=== PATIENT | male | born 1955 | race American Indian/Alaskan Native ===

== ENCOUNTER 2018-02-19 18:54 | Inpatient (IN) | payer MEDICAID, OTHER ==
--- NOTE | 2018-02-19 19:03 | Emergency Department Report ---
HPI - General Time Seen by Provider: 02/19/18 18:59 - HPI HPI: 63-year-old -Monegas[place] male presents to the emergency department via EMS from home with complaint of a syncopal episode and then some strokelike symptoms. The patient does have a history of previous CVA with some residual left-sided weakness. He went for a walk about 1 hour prior to arrival. When he came home he had a witnessed syncopal episode and then came to with some slurred speech and worsening of the left-sided weakness. He then laid down to rest and says that most of his symptoms have since resolved and he is left with the residual left-sided weakness. He denies any headache, vision change. He does appear to have some new mild left sided numbness or decreased sensation. ED Review of Systems ROS: Stated complaint: POSSIBLE STROKE Other details as noted in HPI Comment: All other systems reviewed and negative Constitutional: denies: chills, fever Eyes: denies: eye pain, vision change ENT: denies: ear pain, throat pain Respiratory: denies: cough, shortness of breath Cardiovascular: denies: chest pain, palpitations Gastrointestinal: denies: abdominal pain, vomiting Genitourinary: denies: dysuria, discharge Musculoskeletal: denies: back pain, arthralgia Neurological: headache, weakness, numbness Physical Exam - Physical Exam Physical Exam: GENERAL: The patient is well-developed well-nourished. HEENT: Normocephalic. Atraumatic. Patient has moist mucous membranes. EYES: Extraocular motions are intact. Pupils are equal and reactive to light bilaterally. NECK: Supple. Trachea is midline. CHEST/LUNGS: Clear to auscultation. There is no respiratory distress noted. HEART/CARDIOVASCULAR: Regular. There is no tachycardia. There is no obvious murmur. ABDOMEN: Abdomen is soft, nontender. Patient has normal bowel sounds. There is no abdominal distention. SKIN: Skin is warm and dry. NEURO: The patient is awake, alert, and oriented. The patient is cooperative. There is some subjective decreased sensation to the left side of the face and the left arm when compared to the right side. No facial asymmetry. The patient has normal speech. Mild left upper and lower extremity pronator drift. MUSCULOSKELETAL: There is no tenderness or deformity. There is no evidence of acute injury. ED Course - Consultations Consultation #1: 02/19/18 19:42 I have spoken with the telemedicine neurologist, Dr. Herrera, who is going to evaluate the patient via penciller and call back with his recommendations. 02/19/18 20:00 The telemedicine neurologist saw the patient and feels that he is basically back at his baseline neurological status. He does not feel that the patient needs TPA as he has shown improvement. He does not feel the patient requires CT angiography of the head and neck but does suggest admission for TIA workup. ED Medical Decision Making - Lab Data Result diagrams: 02/19/18 19:25 02/19/18 19:25 - EKG Data -: EKG Interpreted by Dc EKG shows normal: sinus rhythm (PVCs), axis, intervals, QRS complexes, ST-T waves Rate: normal - EKG Data When compared to previous EKG there are: previous EKG unavailable Interpretation: normal EKG - Radiology Data Radiology results: report reviewed EXAM: CT HEAD/BRAIN WO CON HISTORY: neuro deficits lt; 6hrs or sx present upon awakening TECHNIQUE: CT head without contrast PRIORS: None. FINDINGS: No acute intra-axial or extra-axial hemorrhage is identified. There is no evidence of midline shift or mass effect. The ventricles and sulci are within normal limits. Hardin- white matter differentiation is intact. No acute parenchymal abnormalities seen. There are patchy and confluent hypodensities within the right frontal and temporal white matter Bony calvarium is grossly intact. Visualized portions of the mastoids and paranasal sinuses are unremarkable. IMPRESSION: Chronic ischemic changes No acute parenchymal abnormality seen. Transcribed By: EMMANUEL Dictated By: FRANNY GORE MD Electronically Authenticated By: FRANNY GORE MD Signed Date/Time: 02/19/181916 PROCEDURE: CT ANGIO CHEST TECHNIQUE: Computerized tomographic angiography of the chest was performed during the IV injection of iodinated nonionic contrast including image processing. The image data was postprocessed using 2- dimensional multiplanar reformatted (MPR) and 3-dimensional (MIP and/or volume rendered) techniques. HISTORY: Syncope, elevated dimer. Evaluate pulmonary embolus COMPARISON: No prior studies are available for comparison. FINDINGS: Pulmonary outflow tract, right and left main pulmonary arteries and their proximal branches: Clear, no filling defects seen to suggest pulmonary embolus. Pericardium: No evidence of pericardial effusion. Thoracic aorta: No evidence of aneurysmal dilatation or dissection. Coronary arteries: Are partially calcified indicating atherosclerotic disease. Mediastinum and hilar regions: Nonspecific subcentimeter lymph nodes are visua lized. No pathologically enlarged lymph nodes or masses are identified. Lung Velez: Minimal dependent atelectasis. Lungs otherwise are clear. Upper abdomen: 2 calculi are partially visualized in the upper 3rd of the left kidney each measuring approximately 7 millimeters. Renal cortex left kidney appears thin, suspect atrophy of the left kidney. The entire left kidney is not visualized. I suspect there peripelvic cyst visualized in the left kidney. Hydronephrosis not entirely excluded. Other: No acute bony abnormalities are identified. IMPRESSION: No evidence of pulmonary embolus. Small amount of dependent atelectasis visualized. Atherosclerosis coronary arteries. Left kidney appears atrophied, although only partially visualized. Two calculi are partially visualized in the upper 3rd of the left kidney. I suspect peripelvic cysts in the upper 3rd of the left kidney although I cannot exclude hydronephrosis on the left. Transcribed By: LALO Dictated By: JEANINE CHIN MD Electronically Authenticated By: JEANINE CHIN MD Signed Date/Time: 02/19/182123 - Medical Decision Making Patient presents after having a syncopal episode and waking up with some aphasia or dysarthria. However that has resolved prior to arrival. He has some subjective decreased sensation to the left side of the face and left arm. He does have some left upper and lower extremity mild drift but that is a baseline for him now after his previous CVA. This would mean that his NIH stroke scale, not including his residual deficits, otherwise be a 1. CT head without contrast did not show any acute ischemia, bleed, shift, mass or any other acute process. Patient was seen by the telemedicine neurologist who agrees that this sound more like a TIA and does not require TPA or CT angiography head/neck. Since the patient had some unexplained syncopal episode, I ordered a d-dimer which came back slightly elevated and equivocal. For this reason a CT angiography of the chest was done that did not show any pulmonary embolism, dissection or any other acute process. Patient's lab mostly unremarkable. He does have a slightly elevated and equivocal troponin level that will be repeated. The patient will be admitted to the hospital for further evaluation and treatment and was accepted for admission by the hospitalist, Dr. Parikh. - Differential Diagnosis CVA, TIA, PE, Dysrythmia, NV Critical Care Time: No Critical care attestation.: If time is entered above; I have spent that time in minutes in the direct care of this critically ill patient, excluding procedure time. ED Disposition Clinical Impression: TIA (transient ischemic attack) Hypertension Qualifiers: Hypertension type: essential hypertension Qualified Code(s): I10 - Essential (primary) hypertension Disposition: OP ADMIT IP TO THIS HOSP Is pt being admited?: Yes Condition: Fair Instructions: Hypertension (ED) Referrals: PRIMARY CARE, [Primary Care Provider] - 3-5 Days Time of Disposition: 22:40 - Assessment Assessment Interval: Baseline - Level of Consciousness 1a. Level of Consciousness: alert/keenly responsive - LOC Questions 1b. LOC Questions: answers both correctly - LOC Command 1c. LOC Commands: performs tasks correctly - Best Gaze 2. Best Gaze: normal - Visual 3. Visual: no visual loss - Facial Palsy 4. Facial Palsy: normal symmetrical movement - Motor Arm 5b. Motor Arm Right: no drift 5a. Motor Arm Left: drift - Motor Leg 6b. Motor Leg Right: no drift 6a. Motor Leg Left: drift - Limb Ataxia 7. Limb Ataxia: absent - Sensory 8. Sensory: mild/moderate sensory loss - Best Language 9. Best Language: no aphasia - Dysarthria 10. Dysarthria: normal - Extinction and Inattention 11. Extinction/Inattention: no abnormality - Scoring Total Score: 3 Stroke Severity: Minor Stroke
--- NOTE | 2018-02-19 19:17 | Cat Scan Report ---
FINAL REPORT EXAM: CT HEAD/BRAIN WO CON HISTORY: neuro deficits <6hrs or sx present upon awakening TECHNIQUE: CT head without contrast PRIORS: None. FINDINGS: No acute intra-axial or extra-axial hemorrhage is identified. There is no evidence of midline shift or mass effect. The ventricles and sulci are within normal limits. Hardin-white matter differentiation is intact. No acute parenchymal abnormalities seen. There are patchy and confluent hypodensities wit hin the right frontal and temporal white matter Bony calvarium is grossly intact. Visualized portions of the mastoids and paranasal sinuses are unre markable. IMPRESSION: Chronic ischemic changes No acute parenchymal abnormality seen.
[2018-02-19 19:33] LABS: Basophils # (Auto) 0.1 K/mm3 (0.0-0.1); Basophils % (Auto) 0.7 % (0.0-1.8); Eosinophils # (Auto) 0.3 K/mm3 (0.0-0.4); Eosinophils % (Auto) 3.4 % (0.0-4.3); Hematocrit 41.8 % (35.5-45.6); Hemoglobin 14.7 gm/dl (11.8-15.2); Lymphocytes % (Auto) 26.9 % (13.4-35.0); Mean Corpuscular HGB Conc 35 % (32-34); Mean Corpuscular Volume 90 fl (84-94); Monocytes # (Auto) 0.8 K/mm3 (0.0-0.8); Monocytes % (Auto) 10.1 % (0.0-7.3); Platelet Count 222 K/mm3 (140-440); Red Blood Count 4.65 M/mm3 (3.65-5.03); Red Cell Distribution Width 13.5 % (13.2-15.2)
[2018-02-19 19:48] LABS: BUN/Creatinine Ratio 13; Blood Urea Nitrogen 16 mg/dL (9-20); Calcium 8.8 mg/dL (8.4-10.2); Hemolysis Index 186
[2018-02-19 19:53] LABS: Partial Thromboplastin Time 30.5 Sec. (24.2-36.6)
[2018-02-19 19:54] LABS: Thrombin Time 16.5 Sec. (15.1-19.6)
--- NOTE | 2018-02-19 21:24 | Cat Scan Report ---
FINAL REPORT PROCEDURE: CT ANGIO CHEST TECHNIQUE: Computerized tomographic angiography of the chest was performed during the IV injection o f iodinated nonionic contrast including image processing. The image data was postprocessed using 2-di mensional multiplanar reformatted (MPR) and 3-dimensional (MIP and/or volume rendered) techniques. HISTORY: Syncope, elevated dimer. Evaluate pulmonary embolus COMPARISON: No prior studies are available for comparison. FINDINGS: Pulmonary outflow tract, right and left main pulmonary arteries and their proximal branches: Clear, n o filling defects seen to suggest pulmonary embolus. Pericardium: No evidence of pericardial effusion. Thoracic aorta: No evidence of aneurysmal dilatation or dissection. Coronary arteries: Are partially calcified indicating atherosclerotic disease. Mediastinum and hilar regions: Nonspecific subcentimeter lymph nodes are visualized. No pathologicall y enlarged lymph nodes or masses are identified. Lung Velez: Minimal dependent atelectasis. Lungs otherwise are clear. Upper abdomen: 2 calculi are partially visualized in the upper 3rd of the left kidney each measuring approximately 7 millimeters. Renal cortex left kidney appears thin, suspect atrophy of the left kidne y. The entire left kidney is not visualized. I suspect there peripelvic cyst visualized in the left k idney. Hydronephrosis not entirely excluded. Other: No acute bony abnormalities are identified. IMPRESSION: No evidence of pulmonary embolus. Small amount of dependent atelectasis visualized. Atherosclerosis coronary arteries. Left kidney appears atrophied, although only partially visualized. Two calculi are partially visualiz ed in the upper 3rd of the left kidney. I suspect peripelvic cysts in the upper 3rd of the left kidne y although I cannot exclude hydronephrosis on the left.
[2018-02-20 01:43] LABS: Chol/HDL Ratio 3.2 %
--- NOTE | 2018-02-20 08:17 | History and Physical Report ---
CHIEF COMPLAINT: Syncopal attack. OTHER COMPLAINT: Includes left-sided weakness. HISTORY OF PRESENT ILLNESS: The patient is a 63-year-old male who had a syncopal attack after he went for a walk and also developed slurred speech with increasing weakness on the left side of the body. The patient had cerebrovascular accident in the past with left-sided weakness. Thereafter, the patient had a syncopal episode with weakness on the left side increased. The patient after passing out laid down to rest and then noticed that the symptoms started resolving. He still had some residual left-sided weakness and he decided to call 911 and was brought to the Emergency Room. There is no history of visual examine. No history of chest pain or shortness of breath, however, there is history of left-sided numbness. PAST MEDICAL HISTORY: Pertinent for CVA with left-sided weakness. Also, the patient has past medical history of high blood pressure. FAMILY HISTORY: Noncontributory. SOCIAL HISTORY: The patient lives with family. Does not smoke cigarettes. Does not drink alcohol and does not use illicit drugs. MEDICATIONS: The patient's home medications are not known at this time. ALLERGIES: There are no known drug allergies. REVIEW OF SYSTEMS: CONSTITUTIONAL: There is no fever, no chills, no diaphoresis. HEENT: There is no headache or sore throat. CARDIOVASCULAR SYSTEM: No chest pain or orthopnea. RESPIRATORY SYSTEM: There is no shortness of breath or cough. GASTROINTESTINAL SYSTEM: There is no nausea, no vomiting, no abdominal pain, diarrhea or constipation. NEUROLOGICAL SYSTEM: Syncopal attack noted, increasing left-sided weakness noted. There is no history of change in mental status. MUSCULOSKELETAL SYSTEM: There is no joint pain or swelling. DERMATOLOGICAL SYSTEM: There is no skin rash or itching. GENITOURINARY SYSTEM: There is dysuria, hematuria, or flank pain. Rest of system review is normal. PHYSICAL EXAMINATION: GENERAL: At the time of exam, the patient was found to be alert, oriented x 3, and not in acute distress. VITAL SIGNS: Shows normal temperature with pulse of 65, respirations 12, blood pressure 148/96 with normal O2 sat. HEENT: Shows pupils to be equal, round, reactive to light and accommodation. Extraocular muscles intact. NECK: Supple with no JVD or carotid bruits. CARDIOVASCULAR SYSTEM: Showed normal first and second heart sounds with no gallops or murmurs. RESPIRATORY SYSTEM: Shows good air entry on both sides of the lungs with no abnormal breath sounds. GASTROINTESTINAL SYSTEM: Show abdomen to be full, soft, nontender with no organomegaly or rigidity. NEUROLOGIC: Shows weakness on the left side of the body compared to the right with muscle strength of grade 4/6 on the left compared to grade 6/6 on the right. There is no loss of sensory function. MUSCULOSKELETAL SYSTEM: Show no joint swelling or tenderness. DERMATOLOGICAL SYSTEM: Show no skin rash. GENITOURINARY SYSTEM: Showing no costovertebral angle tenderness. PERTINENT LABORATORY DATA: The patient had CBC done, which came back unremarkable and the patient's coagulation studies show a high D-dimer of 259. The patient's chemistry showed low sodium level of 135 and the patient's initial troponin level came back normal with a value of 0.025. IMAGING STUDIES: The patient has CT of the head without contrast done that shows chronic ischemic changes with no acute parenchymal abnormalities. The patient also has CT angiogram of the chest done, ____ elevated. D-dimer shows no evidence of pulmonary embolism. There is finding of small amount of dependent atelectasis. Also, there is finding of atherosclerosis of the coronary arteries and left kidney appears atrophy. There is also a finding of 2 calculi in the upper side of the left kidney. DIAGNOSES: Transient ischemic attack. PLAN OF ACTION: 1. The patient will be admitted to telemetry. 2. The patient will have MRI of the brain without contrast done this morning. 3. The patient will have 2D echo and bilateral carotid Doppler done this morning. 4. The patient will have Neurology consult with Dr. Faustino Guillermo. 5. The patient will have physical therapy and speech therapy consults to evaluate and treat. 6. The patient will remain n.p.o. until swallow test is passed. 7. The patient will be on aspirin 325 mg by mouth daily and will stay on oxygen by nasal cannula 2 liters per minute. 8. The patient will be on neuro check every 4 hours. JOB# [id number] OCN/NTS
[2018-02-20] MEDS: ASPIRIN PO SCH (12:15)
--- NOTE | 2018-02-20 12:43 | Magnetic Resonance Report ---
MRI OF THE BRAIN WITHOUT CONTRAST: HISTORY: TIA PROCEDURE: Multiplanar, multisequence MR imaging of the brain without IV contrast was performed. FINDINGS: Compared to the CT dated 02/19/18. MRI demonstrates 3 areas of diffusion restriction. A 3.0 x 1.9 cm area of diffusion restriction is identified in the anterior right frontal cortex. Just posterior to this, a 0.8 cm focus of diffusion restriction is identified in the superior right frontal cortex. A 1.9 x 1.1 cm area of cortical diffusion restriction is identified in the right parietal lobe. This appears to involve the right precentral gyrus. Advanced volume loss and chronic white matter changes are noted. Small chronic cortical infarcts or identified throughout the watershed regions of the right frontal and parietal lobes. There is no evidence for hemorrhage, mass or extra-axial fluid collection. The midline structures are central. The basal cisterns are patent. Normal ventricular size. The orbital cavities and sella turcica demonstrate no abnormality. The visualized paranasal sinuses and mastoid air cells are adequately aerated. IMPRESSION: At least 3 focal areas of subacute ischemia are identified in the right frontal and right parietal lobes as described above. There also appears to be multiple small chronic cortical infarcts in the watershed regions of the right cerebral hemisphere. Volume loss. Chronic white matter changes.
--- NOTE | 2018-02-20 13:10 | Progress Note ---
Assessment and Plan Assessment and plan: Acute CVA. MRI reveals 3 focal areas of soap askew ischemia identified in the right frontal and right parietal lobes. There also appears to be multiple small chronic cortical infarcts in the watershed regions of the right cerebral hemisphere. Echocardiogram reveals EF of 15-20%. Left ventricular systolic function is severely decreased with chamber size severely dilated. Mild concentric left ventricular hypertrophy. Negative contrast bubble study. Carotid Doppler pending. Neurology consultation pending. Cardiomyopathy. Patient with EF of 15-20%. Consult cardiology for further evaluation. Syncope. Etiology may be secondary to #1. Follow-up carotid Dopplers. History Interval history: 63-year-old -Mexican male presents to the emergency department via EMS from home with complaint of a syncopal episode and then some strokelike sym ptoms. The patient does have a history of previous CVA with some residual left- sided weakness. He went for a walk about 1 hour prior to arrival. When he came home he had a witnessed syncopal episode and then after regaining consciousness he was noticed to have some slurred speech and worsening of the left-sided weakness. He then laid down to rest and says that most of his symptoms have since resolved. However, he is left with the residual left-sided weakness. He denies any headache, vision change. He does appear to have some new mild left sided numbness or decreased sensation. Hospitalist Physical - Constitutional Vitals: Temp Pulse Resp BP Pulse Ox 98.6 F 62 18 131/81 99 02/20/18 07:41 02/20/18 10:00 02/20/18 10:00 02/20/18 07:41 02/20/18 10:00 General appearance: Present: no acute distress, well-nourished - EENT Eyes: Present: PERRL, EOM intact ENT: hearing intact, clear oral mucosa, dentition normal - Neck Neck: Present: supple, normal ROM - Respiratory Respiratory effort: normal Respiratory: bilateral: CTA - Cardiovascular Rhythm: regular Heart Sounds: Present: S1 & S2. Absent: gallop, rub - Extremities Extremities: no ischemia, No edema, Full ROM - Abdominal General gastrointestinal: soft, non-tender, non-distended, normal bowel sounds - Integumentary Integumentary: Present: clear, warm, dry - Neurologic Neurologic: CNII-XII intact, moves all extremities Results - Labs CBC & Chem 7: 02/19/18 19:25 02/19/18 19:25 Labs: Laboratory Last Values WBC 7.5 K/mm3 (4.5-11.0) 02/19/18 19:25 RBC 4.65 M/mm3 (3.65-5.03) 02/19/18 19:25 Hgb 14.7 gm/dl (11.8-15.2) 02/19/18 19:25 Hct 41.8 % (35.5-45.6) 02/19/18 19:25 MCV 90 fl (84-94) 02/19/18 19:25 MCH 32 pg (28-32) 02/19/18: MCHC 35 % (32-34) H 02/19/18:25 RDW 13.5 % (13.2-15.2) 02/19/18:25 Plt Count 222 K/mm3 (140-440) 02/19/18 19:25 Lymph % (Auto) 26.9 % (13.4-35.0) 02/19/18 19:25 Desha % (Auto) 10.1 % (0.0-7.3) H 02/19/18 19:25 Eos % (Auto) 3.4 % (0.0-4.3) 02/19/18:25 Baso % (Auto) 0.7 % (0.0-1.8) 02/19/18:25 Lymph # 2.0 K/mm3 (1.2-5.4) 02/19/18:25 Desha # 0.8 K/mm3 (0.0-0.8) 02/19/18 19:25 Eos # 0.3 K/mm3 (0.0-0.4) 02/19/18:25 Baso # 0.1 K/mm3 (0.0-0.1) 02/19/18:25 Seg Neutrophils % 58.9 % (40.0-70.0) 02/19/18 19:25 Seg Neutrophils # 4.4 K/mm3 (1.8-7.7) 02/19/18 19:25 PT 13.6 Sec. (12.2-14.9) 02/19/18:25 INR 1.00 (0.87-1.13) 02/19/18 19:25 APTT 30.5 Sec. (24.2-36.6) 02/19/18 19:25 Thrombin Time 16.5 Sec. (15.1-19.6) 02/19/18 19:25 D-Dimer 259.07 ng/mlDDU (0-234) H 02/19/18 19:25 Sodium 135 mmol/L (137-145) L 02/19/18 19:25 Potassium 4.8 mmol/L (3.6-5.0) 02/19/18 19:25 Chloride 98.5 mmol/L (98-107) 02/19/18 19:25 Carbon Dioxide 25 mmol/L (22-30) 02/19/18 19:25 Anion Gap 16 mmol/L 02/19/18 19:25 BUN 16 mg/dL (9-20) 02/19/18 19:25 Creatinine 1.2 mg/dL (0.8-1.5) 02/19/18 19:25 Estimated GFR > 60 ml/min 02/19/18 19:25 BUN/Creatinine Ratio 13 % 02/19/18 19:25 Glucose 98 mg/dL (75-100) 02/19/18 19:25 Calcium 8.8 mg/dL (8.4-10.2) 02/19/18 19:25 Troponin T 0.043 ng/mL (0.00-0.029) H D 02/19/18 22:55 Triglycerides 102 mg/dL (2-149) 02/19/18 22:55 Cholesterol 157 mg/dL (50-199) 02/19/18 22:55 LDL Cholesterol Direct 99 mg/dL (50-130) 02/19/18 22:55 HDL Cholesterol 49 mg/dL (40-59) 02/19/18 22:55 Cholesterol/HDL Ratio 3.20 % 02/19/18 22:55
--- NOTE | 2018-02-20 14:00 | Vascular Lab Report ---
FINAL REPORT EXAM: VL CAROTID DUPLEX BILAT HISTORY: TIA TECHNIQUE: Grayscale and color and spectral Doppler ultrasound imaging of the carotid arteries was p erformed. PRIORS: None. FINDINGS: No areas of complete occlusion. Normal waveforms are seen throughout. No aneurysm. There is calcified and noncalcified atherosclerotic plaque bilaterally. Normal flow is seen in the external carotid art eries. Antegrade flow is seen in the vertebral arteries. Peak systolic velocities in cm/s below: Right: CCA: 128.7 proximally, 151.2 distally ICA: 55.7 proximally, 51.2 mid, 47.5 distally ECA: 72.0 Left: CCA: 190.9 proximally, 139.9 distally ICA: 91.8 proximally, 74.0 mid, 71.3 distally ECA: 131.5 The right ICA:CCA ratio is 0.37. The left ICA:CCA ratio is 0.48. IMPRESSION: Atherosclerotic plaque bilaterally with less than 50 percent stenosis of the internal carotid arterie s.
--- NOTE | 2018-02-20 14:50 | Consultation ---
Addendum entered and electronically signed by WIL CARPENTER MD 02/22/18 11:33: Patient is comfortable, no cardiac complaints. Although he has a severe dilated nonischemic cardiomyopathy, he remains in stable sinus rhythm and the echocardiogram bubble study showed no evidence of intracardiac shunting. We will defer to neurology for recommendations of optimal antiplatelet (or anticoagulant) regimen for his recurrent CVA. Addendum entered and electronically signed by WIL CARPENTER MD 02/20/18 18:46: 63-year-old man with a history of dilated nonischemic cardiomyopathy, followed at [facility], at catheterization one year ago reportedly demonstrated the absence of coronary disease. He also has a history of cerebrovascular disease and reportedly suffered a CVA in February 2017, which has left him with a residual mild left hemiparesis. He is on medical therapy for his cardiomyopathy. He presents to the hospital at this time with symptoms of worsening left sided weakness and slurred speech, suspected to be a TIA. He did not meet criteria for TPA administration in the emergency room. His workup here included an echocardiogram which we reported an ejection fraction of 15-20%, and a negative bubble study. Cardiology consultation is requested for further management of the cardiomyopathy and systolic heart failure. Patient's ECG is normal sinus rhythm with an occasional PVC. EKG is o therwise normal. There is no reported history of atrial fibrillation or atrial flutter. Recommendations: Medical therapy including afterload agents, beta blockers and oral antiplatelet therapy as tolerated. Defer to neurology and internal medicine for further management of the cerebrovascular disease, CVA and TIA. Original Note: History of Present Illness Consult date: 02/20/18 Consult reason: other (Cardiomyopathy) History of present illness: This is a 63 year old male who is admitted with acute CVA. Patient gives a history of prior CVA with left sided residual. On yesterday, patient noted with severe left sided weakness resulting in a fall. He denies chest pain and unusual shortness of breath. Patient denies loss of consciousness. His ECG shows sinus rhythm with occasional PVCs. Further evaluation with an echocardiogram revealed a dilated cardiomyopathy ejection fraction 15-20%. Bubble study is negative. Cardiac consultation was requested for management of dilated cardiomyopathy. Patient and family member at bedside reports a history of nonischemic cardiomyopathy by cardiac cath less than a year ago that showed no significant coronary artery disease but a decreased ejection fraction. 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 Medications and Allergies Allergies Allergy/AdvReac Type Severity Reaction Status Date / Time No Known Allergies Allergy Verified 02/19/18 22:33 Home Medications Medication Instructions Recorded Confirmed Last Taken Type Aspirin EC [Aspirin Enteric Coated 81 tab PO DAILY 02/20/18 02/20/18 Unknown History TAB] Aspirin EC [Aspirin Enteric Coated 81 tab PO DAILY 02/20/18 02/20/18 Unknown History TAB] AtorvaSTATin [Lipitor] 40 mg PO QHS 02/20/18 02/20/18 Unknown History Carvedilol [Coreg] 6.25 tab PO BID 02/20/18 02/20/18 Unknown History Docusate Sodium [Colace] 100 mg PO BID PRN 02/20/18 02/20/18 Unknown History Folic Acid [Folvite] 1 mg PO QDAY 02/20/18 02/20/18 Unknown History Furosemide [Lasix] 20 tab PO DAILY 02/20/18 02/20/18 02/19/18 08:00 History Lisinopril [Zestril] 20 mg PO DAILY 02/20/18 02/20/18 Unknown History Active Meds: Active Medications Aspirin (Aspirin) 325 mg PO QDAY VIVIANA Last Admin: 02/20/18 12:15 Dose: Not Given Documented by: Physical Examination Vital Signs Temp Pulse Resp BP Pulse Ox 99.4 F 73 17 156/92 98 02/19/18 19:09 02/19/18 19:09 02/19/18 19:09 02/19/18 19:09 02/19/18 19:09 General appearance: no acute distress HEENT: Positive: PERRL Cardiac: Positive: Reg Rate and Rhythm Lungs: Positive: Decreased Breath Sounds Neuro: Positive: Weakness (left side) Extremities: Absent: edema Results 02/19/18 19:25 02/19/18 19:25 Coagulation 02/19/18 Range/Units 19:25 PT 13.6 (12.2-14.9) Sec. INR 1.00 (0.87-1.13) APTT 30.5 (24.2-36.6) Sec. Lipids 02/19/18 Range/Units 22:55 Triglycerides 102 (2-149) mg/dL Cholesterol 157 (50-199) mg/dL HDL Cholesterol 49 (40-59) mg/dL Cholesterol/HDL Ratio 3.20 % CBC 02/19/18 Range/Units 19:25 WBC 7.5 (4.5-11.0) K/mm3 RBC 4.65 (3.65-5.03) M/mm3 Hgb 14.7 (11.8-15.2) gm/dl Hct 41.8 (35.5-45.6) % Plt Count 222 (140-440) K/mm3 Lymph # 2.0 (1.2-5.4) K/mm3 [place] # 0.8 (0.0-0.8) K/mm3 Eos # 0.3 (0.0-0.4) K/mm3 Baso # 0.1 (0.0-0.1) K/mm3 Comprehensive Metabolic Panel 02/19/18 Range/Units 19:25 Sodium 135 L (137-145) mmol/L Potassium 4.8 (3.6-5.0) mmol/L Chloride 98.5 (98-107) mmol/L Carbon Dioxide 25 (22-30) mmol/L BUN 16 (9-20) mg/dL Creatinine 1.2 (0.8-1.5) mg/dL Glucose 98 (75-100) mg/dL Calcium 8.8 (8.4-10.2) mg/dL Assessment and Plan Recurrent CVA Prior CVA with left sided residual Hypertension Nonischemic cardiomyopathy EF 15-20% Obtain prior cardiac records from [facility] for review.
--- NOTE | 2018-02-21 02:06 | Consultation ---
NEUROLOGIC CONSULTATION REASON FOR CONSULTATION: Syncope and possible stroke. HISTORY OF PRESENT ILLNESS: History of present illness was given by the patient. He said that is a 63-year-old black male and has been doing well until about yesterday. He went for a walk and then while he was walking his left leg apparently gave way on him and he fell. He said that he passed out a little bit but then he recovered. He noticed that his left side became weak. This was worse than before. History of weakness in the left side. He rested for a while and the symptoms resolved. He called 911, and he was brought to the Emergency Room. He did not have any chest pain, shortness of breath, palpitation, or convulsion. Since he was here in the room, he has not had any further problems. The daughter mentioned that all his medical care is being done at [facility], and she requested him to be transferred to that facility. PAST MEDICAL HISTORY: He has high blood pressure and cerebrovascular accident with left-sided weakness. FAMILY HISTORY: Unremarkable. SOCIAL HISTORY: The patient lives with his family. He denied smoking. The patient drinks alcoholic beverages. No illicit drugs. ALLERGIES: No known allergies. MEDICATIONS: He takes aspirin only 325 mg daily. PHYSICAL EXAMINATION: GENERAL: Reveals a well-developed, well-nourished, and obese male, who is in no acute distress. He is comfortable. HEAD, EYES, EARS, NOSE, MOUTH AND THROAT: Examination is unremarkable. No intracranial or intraorbital bruit. NECK: Supple. No carotid bruit. HEART: Irregular. LUNGS: Decreased breath sounds. ABDOMEN: Protuberant, obese. EXTREMITIES: 2+ pedal edema. His nailbeds were long. ____. VITAL SIGNS: Temperature 98.2, pulse rate 73 and irregular, blood pressure 113/72, and saturation ____%. NEUROLOGIC: Reveals the patient is awake, alert. Mental status is normal for age. Cranial nerve examination was normal, maybe a slight weakness on the left side of the face. Motor examination: He has a drift on the left upper and left lower extremities. Reflexes symmetrical on both sides, mild Babinski on the left. LABORATORY DATA: Pertinent ones: MRI of the brain showed subacute ischemia in the right frontal and right parietal lobe and multiple chronic cortical infarcts in the watershed regions of his right cerebral hemisphere and chronic white matter changes. CLINICAL IMPRESSION: This patient appears to have a small stroke, right frontal and right parietal lobes. I am not sure which ones are old or new, but it is possible that he had a new one. Other problem includes chronic cardiomyopathy. RECOMMENDATION: 1. Cardiac evaluation. 2. Antiplatelet: The patient is taking now aspirin. May consider addition of Plavix. Hopefully, manager integrity can see him. 3. The family requested the patient to be transferred to [facility] because all his records and doctors are there and Dr. Burk was apparently contacted. I told the family that Dr. Shields will have to make a decision on this. JOB# [id number] JARETH/DARRYL
[2018-02-21] MEDS: ASPIRIN PO SCH (09:24)
--- NOTE | 2018-02-21 10:40 | Progress Note ---
Assessment and Plan TIA Prior CVA with left sided residual Hypertension Nonischemic cardiomyopathy EF 15-20%, negative bubble study. absence of CAD by LHC at [facility] in 2018 per pt Recommend: Obtain prior cardiac records from [facility]. Medical therapy for nonischemic cardiomyopathy to included afterload agents, beta blockers and oral antiplatelet therapy as tolerated. Subjective Date of service: 02/21/18 Interval history: Patient has no cardiac complaints. Objective Vital Signs Temp Pulse Resp BP BP Pulse Ox 02/21/18 10:13 97.9 F 18 L 20 156/102 100 02/21/18 00:12 98.5 F 68 18 144/82 96 02/20/18 21:42 96 02/20/18 19:52 64 02/20/18 19:35 98.2 F 73 18 140/84 95 02/20/18 16:35 98.1 F 64 18 135/80 91 - Physical Examination General: No Apparent Distress HEENT: Positive: PERRL Cardiac: Positive: Irregularly Regular Neuro: Positive: Weakness (left side) Extremities: Absent: edema
--- NOTE | 2018-02-21 11:31 | Progress Note ---
Assessment and Plan Assessment and plan: Acute CVA. MRI reveals 3 focal areas of subacute ischemia identified in the right frontal and right parietal lobes. There also appears to be multiple small chronic cortical infarcts in the watershed regions of the right cerebral hemisphere. Echocardiogram reveals EF of 15-20%. Left ventricular systolic function is severely decreased with chamber size severely dilated. Mild concentric left ventricular hypertrophy. Negative contrast bubble study. Carotid Doppler pending. Neurology consultation pending. Nonischemic Cardiomyopathy. Patient with EF of 15-20%. Cardiology following. Patient with absence of coronary artery disease by [facility] at [facility] in 2018 per pt. we will attempt to obtain records. Continue aspirin, Lipitor, carvedilol, Lasix and lisinopril. Hypertension. Continue antihypertensive medications. Syncope. Etiology may be secondary to #1. Follow-up carotid Dopplers. History Interval history: 63-year-old -[place] Citizen male presents to the emergency department via EMS from home with complaint of a syncopal episode and then some strokelike symptoms. The patient does have a history of previous CVA with some residual left-sided weakness. He went for a walk about 1 hour prior to arrival. When he came home he had a witnessed syncopal episode and then after regaining consciousness he was noticed to have some slurred speech and worsening of the left-sided weakness. He then laid down to rest and says that most of his symptoms have since resolved. However, he is left with the residual left-sided weakness. He denies any headache, vision change. He does appear to have some new mild left sided numbness or decreased sensation. Hospitalist Physical - Constitutional Vitals: Temp Pulse Resp BP Pulse Ox 97.9 F 18 L 20 156/102 100 02/21/18 10:13 02/21/18 10:13 02/21/18 10:13 02/21/18 10:13 02/21/18 10:13 General appearance: Present: no acute distress - EENT Eyes: Present: PERRL, EOM intact ENT: hearing intact, clear oral mucosa, dentition normal - Neck Neck: Present: supple, normal ROM - Respiratory Respiratory effort: normal Respiratory: bilateral: CTA - Cardiovascular Rhythm: regular Heart Sounds: Present: S1 & S2. Absent: gallop, rub - Extremities Extremities: no ischemia, No edema, Full ROM - Abdominal General gastrointestinal: soft, non-tender, non-distended, normal bowel sounds - Integumentary Integumentary: Present: clear, warm, dry - Neurologic Neurologic: CNII-XII intact, moves all extremities Results - Labs CBC & Chem 7: 02/19/18 19:25 02/19/18 19:25 Labs: Laboratory Last Values WBC 7.5 K/mm3 (4.5-11.0) 02/19/18 19:25 RBC 4.65 M/mm3 (3.65-5.03) 02/19/18 19:25 Hgb 14.7 gm/dl (11.8-15.2) 02/19/18 19:25 Hct 41.8 % (35.5-45.6) 02/19/18 19:25 MCV 90 fl (84-94) 02/19/18 19:25 MCH 32 pg (28-32) 02/19/18 19:25 MCHC 35 % (32-34) H 02/19/18 19:25 RDW 13.5 % (13.2-15.2) 02/19/18:25 Plt Count 222 K/mm3 (140-440) 02/19/18 19:25 Lymph % (Auto) 26.9 % (13.4-35.0) 02/19/18 19:25 Meigs % (Auto) 10.1 % (0.0-7.3) H 02/19/18 19:25 Eos % (Auto) 3.4 % (0.0-4.3) 02/19/18 19:25 Baso % (Auto) 0.7 % (0.0-1.8) 02/19/18 19:25 Lymph # 2.0 K/mm3 (1.2-5.4) 02/19/18 19:25 Meigs # 0.8 K/mm3 (0.0-0.8) 02/19/18 19:25 Eos # 0.3 K/mm3 (0.0-0.4) 02/19/18 19:25 Baso # 0.1 K/mm3 (0.0-0.1) 02/19/18 19:25 Seg Neutrophils % 58.9 % (40.0-70.0) 02/19/18 19:25 Seg Neutrophils # 4.4 K/mm3 (1.8-7.7) 02/19/18 19:25 PT 13.6 Sec. (12.2-14.9) 02/19/18 19:25 INR 1.00 (0.87-1.13) 02/19/18 19:25 APTT 30.5 Sec. (24.2-36.6) 02/19/18 19:25 Thrombin Time 16.5 Sec. (15.1-19.6) 02/19/18 19:25 D-Dimer 259.07 ng/mlDDU (0-234) H 02/19/18 19:25 Sodium 135 mmol/L (137-145) L 02/19/18 19:25 Potassium 4.8 mmol/L (3.6-5.0) 02/19/18 19:25 Chloride 98.5 mmol/L (98-107) 02/19/18 19:25 Carbon Dioxide 25 mmol/L (22-30) 02/19/18 19:25 Anion Gap 16 mmol/L 02/19/18 19:25 BUN 16 mg/dL (9-20) 02/19/18 19:25 Creatinine 1.2 mg/dL (0.8-1.5) 02/19/18 19:25 Estimated GFR > 60 ml/min 02/19/18 19:25 BUN/Creatinine Ratio 13 % 02/19/18 19:25 Glucose 98 mg/dL (75-100) 02/19/18 19:25 POC Glucose 146 (70-105) H 02/20/18 18:31 Calcium 8.8 mg/dL (8.4-10.2) 02/19/18 19:25 Troponin T 0.043 ng/mL (0.00-0.029) H D 02/19/18 22:55 Triglycerides 102 mg/dL (2-149) 02/19/18 22:55 Cholesterol 157 mg/dL (50-199) 02/19/18 22:55 LDL Cholesterol Direct 99 mg/dL (50-130) 02/19/18 22:55 HDL Cholesterol 49 mg/dL (40-59) 02/19/18 22:55 Cholesterol/HDL Ratio 3.20 % 02/19/18 22:55
[2018-02-21] MEDS: LASIX PO SCH (14:42)
[2018-02-21] MEDS: ZESTRIL PO SCH (14:42)
[2018-02-21] MEDS: COREG PO SCH (21:43)
--- NOTE | 2018-02-21 23:27 | Physician Progress Note ---
Medical problem and neurology problem, the patient had syncope and stroke. SUBJECTIVE: The patient said that he is feeling better at this time. He has not had any new event. He has no passing out spell. The weakness on the left had been getting worse. MRI showed multiple strokes. cardiac evaluation, antiplatelet. Also, the daughter wants him to be transferred to [facility] since his records are there and his cardiologists are there. OBJECTIVE: No change from before. Left-sided weakness. ASSESSMENT: Multiple stroke syndrome, arteriosclerotic, chronic cardiomyopathy, which is a risk factor for the stroke. PLAN: As above. Continue cardiac evaluation, which is important, antiplatelet. The daughter said that she will be checking with the clinical radiologist at [place]. JOB# [id number] JARETH/DARRYL
--- NOTE | 2018-02-22 09:30 | Discharge Summary ---
Providers - Providers Date of Admission: 02/19/18 22:18 Date of discharge: 02/22/18 Attending physician: HOWARD STEVE 02/19/18 22:23 Consult to Physician [CONS] Routine Comment: Consulting Provider: CIARAN ZENDEJAS Physician Instructions: Reason For Exam: TIA 02/20/18 06:00 Physical Therapy Evaluation and Treat [CONS] Routine Comment: Reason For Exam: TIA Speech Therapy Evaluation and Treat [CONS] Routine Reason For Exam: SPEECH IMPAIRMENT 02/20/18 13:15 Consult to Physician [CONS] Routine Comment: Consulting Provider: WIL CARPENTER Physician Instructions: Reason For Exam: cardiomyopathy Primary care physician: HOUSE CALLS NURSE Hospitalization Reason for admission: cva Condition: Fair Hospital course: 63-year-old -[place] male presents to the emergency department via EMS from home with complaint of a syncopal episode and then some strokelike symptoms. The patient does have a history of previous CVA with some residual left-sided weakness. The patient was admitted with diagnosis of acute CVA. MRI reveals 3 focal areas of subacute ischemia identified in the right frontal and right parietal lobes. There also appears to be multiple small chronic cortical infarcts in the watershed regions of the right cerebral hemisphere. Echocardiogram reveals EF of 15-20%. Left ventricular systolic function is severely decreased with chamber size severely dilated. Mild concentric left ventricular hypertrophy. Negative contrast bubble study. So a neurology documented the accident as TIA. The patient also underwent CT of the chest and was found to be negative for PE. Neurology at our facility reported multiple stroke syndrome and chronic cardiomyopathy which is a risk factor. Cardiology saw the patient in consultation and recommended medical therapy for non-ischemic cardiomyopathy to include afterload agents, beta blockers and oral antiplatelet therapy as tolerated. Physical therapy saw the patient in consultation and recommended home health PT. Patient stabilized and felt to have received maximum hospital benefit and will be discharged home. Dedicated discharge time 35 minutes. Disposition: [id number] HOME UNDER HOME [facility] Time spent for discharge: 35 - Discharge Diagnoses (1) Hypertension Status: Acute Qualifiers: Hypertension type: essential hypertension Qualified Code(s): I10 - Essenti al (primary) hypertension (2) TIA (transient ischemic attack) Status: Acute (3) Nonischemic cardiomyopathy Status: Acute Core Measure Documentation - Palliative Care Palliative Care/ Comfort Measures: Not Applicable - Core Measures Any of the following diagnoses?: stroke - Stroke Discharge Requirements Statin for LDL = or >70 mg/dl on DC: Yes Anticoag for atrial fib/atrial flutter: Not Applicable Antithrombotic for ischemic stroke: Yes Exam - Constitutional Vitals: Temp Pulse Resp BP Pulse Ox 98.6 F 65 18 131/91 96 02/22/18 08:48 02/22/18 08:49 02/22/18 08:49 02/22/18 08:49 02/22/18 08:49 General appearance: Present: no acute distress, well-nourished - EENT Eyes: Present: PERRL ENT: hearing intact, clear oral mucosa - Neck Neck: Present: supple, normal ROM - Respiratory Respiratory effort: normal Respiratory: bilateral: CTA - Cardiovascular Heart Sounds: Present: S1 & S2. Absent: rub, click - Extremities Extremities: pulses symmetrical, No edema Peripheral Pulses: within normal limits - Abdominal General gastrointestinal: Present: soft, non-tender, non-distended, normal bowel sounds Male genitourinary: Present: normal - Integumentary Integumentary: Present: clear, warm, dry - Musculoskeletal Musculoskeletal: gait normal, strength equal bilaterally - Psychiatric Psychiatric: appropriate mood/affect, intact judgment & insight - Neurologic Neurologic: CNII-XII intact, moves all extremities Plan Activity: no restrictions Weight Bearing Status: Weight Bear as Tolerated Diet: low fat, low cholesterol, low salt Follow up with: PRIMARY CARE, [Primary Care Provider] - 3-5 Days CIARAN ZENDEJAS [Staff Physician] - 7 Days WIL CARPENTER MD [Staff Physician] - 7 Days Prescriptions: Aspirin [Aspirin TAB] 325 mg PO QDAY #30 tablet Atorvastatin Calcium [Lipitor] 80 mg PO DAILY #30 tablet Carvedilol [Coreg] 6.25 tab PO BID #60 tablet Folic Acid [Folvite] 1 mg PO QDAY #30 tablet Furosemide [Lasix] 20 tab PO DAILY #30 tablet Lisinopril [Zestril] 20 mg PO DAILY #30 tablet
[2018-02-22] MEDS: ASPIRIN PO SCH (11:10)
[2018-02-22] MEDS: COREG PO SCH (11:10)
[2018-02-22] MEDS: LASIX PO SCH (11:10)
[2018-02-22] MEDS: ZESTRIL PO SCH (11:10)
--- NOTE | 2018-02-22 11:22 | Progress Note ---
Assessment and Plan TIA Prior CVA with left sided residual Hypertension Hx of Nonischemic cardiomyopathy EF 15-20%, negative bubble study. absence of CAD by LHC at [facility] in 2018 per pt Recommend: Continue medical therapy for nonischemic cardiomyopathy. Stable cardiac barry. 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 Subjective Date of service: 02/22/18 Interval history: Patient has no cardiac complaints. Objective Vital Signs Temp Pulse Resp BP BP Pulse Ox 02/22/18 08:49 65 18 131/91 96 02/22/18 08:48 98.6 F 02/22/18 04:25 67 106/77 97 02/21/18 23:16 98.0 F 62 18 128/81 91 02/21/18 22:03 93 02/21/18 19:55 98.8 F 71 16 142/88 93 02/21/18 19:00 81 02/21/18 17:49 98.3 F 69 18 145/101 98 02/21/18 16:11 94 02/21/18 12:17 71 18 141/84 93 02/21/18 12:16 98.4 F - Physical Examination General: No Apparent Distress HEENT: Positive: PERRL Cardiac: Positive: Reg Rate and Rhythm Lungs: Positive: Decreased Breath Sounds Neuro: Positive: Weakness (left side) Extremities: Absent: edema
[2018-02-22 17:17] VITALS: BP 128/76
== END 2018-02-22 18:34 | disposition home health service (06) | DRG 65 ==
LOC: ED 18:54 → 4A 22:18
PROVIDERS: ADMIT Internal Medicine; ATTEND Hospitalist
DX: I63.9 Cerebral infarction, unspecified (principal); I42.8 Other cardiomyopathies; I10 Essential (primary) hypertension; R55 Syncope and collapse; Z79.82 Long term (current) use of aspirin; Z79.899 Other long term (current) drug therapy
CPT/HCPCS: 36415; 70450; 70551; 71275; 80048; 80061; 82962; 84484; 85025; 85379; 85610; 85670; 85730; 87116; 93005; 93010; 93306; 93880; G0378; A9270-GY; Q9967